=== PATIENT | male | born 1980 | race Caucasian/White ===

== ENCOUNTER → 2017-01-31 | Outpatient (CLI) | payer MEDICARE ==
[~2017-01-31] MED LIST: AMOXICILLIN500 MG PO; BACTRIM 400 MG-1 TAB PO; CLARITIN10 MG PO; DILANTIN50 MG PO; FLUTICASON0.05 MG/AC NAS; ONDANSETRON H2 MG/ML IV; Percocet 325 MG1 TAB PO; TOBREX OPHTH S2.5 ML OPH
[2017-01-31 10:17] LABS: BASO % 0.7 % (0.0-1.0); EOS # 0.1 10*3/uL (0.0-0.4); EOS % 1.7 % (1.0-4.0); HEMATOCRIT 46.6 % (42.0-52.0); LYMPH # 1.9 10*3/uL (1.3-4.4); LYMPH % 32.8 % (27.0-41.0); MEAN CELL VOLUME 90.8 fl (80.0-94.0); MEAN CORPUSCULAR HGB 31.2 pg (27.0-31.0); MEAN CORPUSCULAR HGB CONC 34.3 g/dl (33.0-37.0); MEAN PLATELET VOLUME 9.9 fl (9.6-12.3); MONO # 0.5 10*3/uL (0.1-1.0); MONO % 8.5 % (3.0-9.0); NEUT # 3.3 10*3/uL (2.3-7.9); PLATELET COUNT AUTOMATED 198 10*3/uL (130-400); RED BLOOD COUNT 5.13 10*6/uL (4.50-5.90); RED CELL DISTRI WIDTH 13.4 % (0-14.5); WHITE BLOOD COUNT 5.9 10*3/uL (4.8-10.8)
[2017-01-31 10:44] LABS: BUN 13 mg/dl (7-24); CHLORIDE 103 mmol/L (98-107); CREATININE 0.66 mg/dL (0.70-1.30); PHENYTOIN (DILANTIN) 18.1 ug/ml (10-20); POTASSIUM 3.7 mmol/L (3.5-5.1); SGOT/AST 19 IU/L (3-35); SGPT/ALT 30 U/L (12-78); SODIUM 141 mmol/L (136-145); TOTAL PROTEIN 8.2 gm/dL (6.4-8.2)
[2017-01-31 10:53] LABS: ALKALINE PHOSPHATASE 123 U/L (45-117)
== END | disposition home or self-care (01) ==
LOC: LAB 09:48
PROVIDERS: Internal Medicine
DX: G40.909 Epilepsy, unspecified, not intractable, without status epilepticus (principal); Z79.899 Other long term (current) drug therapy

== ENCOUNTER 2017-02-25 11:47 | Emergency (ER) | payer MEDICARE ==
[~2017-02-25] VITALS: Ht 180.3 cm; Wt 78.5 kg
[2017-02-25] MEDS ORDERED: ACULAR 0.5%3 ML OPH (12:20)
[2017-02-25] MEDS ORDERED: Tobrex Ophth S2.5 ML OPH (12:20)
== END 2017-02-25 13:18 | disposition home or self-care (01) ==
LOC: ED 11:47
DX: S05.02XA Injury of conjunctiva and corneal abrasion without foreign body, left eye, initial encounter (principal); Z79.899 Other long term (current) drug therapy; X58.XXXA Exposure to other specified factors, initial encounter; Y93.89 Activity, other specified; Y92.89 Other specified places as the place of occurrence of the external cause; Y99.8 Other external cause status

== ENCOUNTER 2018-06-18 09:47 | Emergency (ER) | payer MEDICARE ==
[~2018-06-18] VITALS: Wt 78.5 kg
--- NOTE | ~2018-06-18 | EKG ---
[place], [place] ELECTROCARDIOGRAM REPORT NAME: LINDA FREITAS UNIT #: [id number] ROOM: DOCTOR: EPIPHANY DRAFT REPORT BIRTHDATE: [birth year] [facility] Test Date: 2018-06-18 Test Time: 09:53:23 Pat Name: LINDA FREITAS Department: Room: Gender: [employer] Tech: Aubrie Devlin : 1980 Requested By: LANRE TIM Order Number: [id number] Reading MD: Roosevelt Ray MD Measurements Intervals [place] Rate: 99 P: 45 AR: 181 QRS: 33 QRSD: 98 T: 41 QT: 347 QTc: 446 Interpretive Statements Sinus rhythm Nonspecific ST T changes Electronically Signed On 06-20-2018 7:10:02 PST by Roosevelt Ray MD CM:EKGRPT:ELECTROCARDIOGRAM REPORT [id number] LANRE ERNANDEZ DRAFT REPORT LANRE TIM M.D.
[~2018-06-18 09:47] MED LIST changes: +ACULAR 0.5%3 ML OPH; +Tobrex Ophth S2.5 ML OPH
[2018-06-18 10:18] LABS: BASO % 0.5 % (0.0-1.0); HEMATOCRIT 47.5 % (42.0-52.0); HEMOGLOBIN 16.4 g/dl (14.0-18.0); LYMPH # 1.5 10*3/uL (1.3-4.4); LYMPH % 22.9 % (27.0-41.0); MEAN CORPUSCULAR HGB 31.1 pg (27.0-31.0); MEAN CORPUSCULAR HGB CONC 34.5 g/dl (33.0-37.0); MEAN PLATELET VOLUME 9.7 fl (9.6-12.3); MONO # 0.4 10*3/uL (0.1-1.0); MONO % 6.5 % (3.0-9.0); NEUT # 4.5 10*3/uL (2.3-7.9); NEUT % 69.9 % (47.0-73.0); PLATELET COUNT AUTOMATED 214 10*3/uL (130-400); RED BLOOD COUNT 5.28 10*6/uL (4.50-5.90); WHITE BLOOD COUNT 6.5 10*3/uL (4.8-10.8)
[2018-06-18 10:28] LABS: ACT PARTIAL THROMBO TIME 22.9 SECONDS (20.8-31.5)
[2018-06-18 10:41] LABS: ALKALINE PHOSPHATASE 119 U/L (45-117); BUN 6 mg/dl (7-24); CHLORIDE 104 mmol/L (98-107); CREATININE 0.74 mg/dL (0.70-1.30); POTASSIUM 3.8 mmol/L (3.5-5.1); SGOT/AST 14 IU/L (3-35); SGPT/ALT 31 U/L (12-78); SODIUM 139 mmol/L (136-145); TOTAL PROTEIN 8.4 gm/dL (6.4-8.2)
[2018-06-18] MEDS ORDERED: PHENYTOIN50 M1 PO (10:44)
[2018-06-18 10:46] LABS: TROPONIN I < 0.015 ng/ml (<0.045)
== END 2018-06-18 11:29 | disposition home or self-care (01) ==
LOC: ED 09:47
PROVIDERS: Emergency Medicine
DX: R00.2 Palpitations (principal); R00.0 Tachycardia, unspecified; Z79.899 Other long term (current) drug therapy

== ENCOUNTER 2019-03-27 14:02 | Emergency (ER) | payer MEDICARE ==
[~2019-03-27] VITALS: Ht 154.9 cm; Wt 79.4 kg
[~2019-03-27 14:02] MED LIST changes: +PHENYTOIN50 M1 PO
[2019-03-27] MEDS ORDERED: MYCOLOG CREAM 115 GM T (14:32)
== END 2019-03-27 14:40 | disposition home or self-care (01) ==
LOC: ED 14:02
DX: R21 Rash and other nonspecific skin eruption (principal)

== ENCOUNTER 2020-08-12 10:13 | Emergency (ER) | payer MEDICARE ==
[~2020-08-12] VITALS: Ht 180.3 cm; Wt 83.9 kg
[~2020-08-12 10:13] MED LIST changes: +MYCOLOG CREAM 115 GM T
[2020-08-12] MEDS ORDERED: Meclizine25 MG PO (12:19)
[2020-08-12] MEDS ORDERED: AMOXICILLIN500 M2 PO (12:19)
== END 2020-08-12 12:35 | disposition home or self-care (01) ==
LOC: ED 10:13
DX: J32.9 Chronic sinusitis, unspecified (principal); R42 Dizziness and giddiness; Z79.899 Other long term (current) drug therapy; Z98.890 Other specified postprocedural states

== ENCOUNTER → 2021-05-06 | Outpatient (CLI) | payer MEDICARE ==
[~2021-05-06] MED LIST changes: +AMOXICILLIN500 M2 PO; +Meclizine25 MG PO
== END | disposition home or self-care (01) ==
LOC: COVID19 15:25
PROVIDERS: ATTEND Family Medicine
DX: Z11.52 Encounter for screening for COVID-19 (principal)

== ENCOUNTER → 2023-07-13 | Outpatient (CLI) | payer MEDICARE, OTHER ==
[2023-07-13 12:34] LABS: HEMATOCRIT 48.2 % (42.0-52.0); MEAN CELL VOLUME 93.2 fl (80.0-94.0); MEAN CORPUSCULAR HGB 31.1 pg (27.0-31.0); MEAN CORPUSCULAR HGB CONC 33.4 g/dl (33.0-37.0); MEAN PLATELET VOLUME 10.1 fl (9.6-12.3); RED BLOOD COUNT 5.17 10*6/uL (4.50-5.90); RED CELL DISTRI WIDTH 13.2 % (0-14.5); WHITE BLOOD COUNT 6.4 10*3/uL (4.8-10.8)
[2023-07-13 13:01] LABS: ALKALINE PHOSPHATASE 101 U/L (46-116); CHLORIDE 103 mmol/L (98-107); CHOLESTEROL 198 mg/dL (<200); LDL CHOLESTEROL 113 mg/dL (9-159); PHENYTOIN (DILANTIN) 14.8 ug/ml (10-20); POTASSIUM 3.6 mmol/L (3.4-5.1); SGPT/ALT 21 U/L (5-49); TOTAL PROTEIN 7.6 gm/dL (6.0-8.0); TRIGLYCERIDES 115 mg/dl (<150)
[2023-07-13 13:11] LABS: BUN < 5 mg/dl (9-23)
== END | disposition home or self-care (01) ==
LOC: LAB 11:54
PROVIDERS: ATTEND Physician Assistant
DX: G30.1 Alzheimer's disease with late onset (principal); G40.909 Epilepsy, unspecified, not intractable, without status epilepticus; Z79.899 Other long term (current) drug therapy

== ENCOUNTER 2023-09-14 15:06 | Emergency (ER) | payer OTHER ==
[~2023-09-14] VITALS: Ht 180.3 cm; Wt 82.6 kg
[2023-09-14] MEDS ORDERED: FLUTICASONE-SAL12 GM INH (15:23)
[2023-09-14] MEDS ORDERED: PHENYTOIN50 M1 PO (15:24)
[2023-09-14] MEDS ORDERED: Tdap Vaccine 0.5 ML SYR (Adult Vaccine) IM ONE (16:50)
[2023-09-14] MEDS ORDERED: ACETAMINOPHEN 325 MG TAB PO ONE (16:50)
[2023-09-14] MEDS ORDERED: Bacitracin Zinc 14 GM TUBE T ONE (18:20)
== END 2023-09-14 18:34 | disposition home or self-care (01) ==
LOC: ED 15:06
DX: S20.211A Contusion of right front wall of thorax, initial encounter (principal); S50.312A Abrasion of left elbow, initial encounter; S09.8XXA Other specified injuries of head, initial encounter; Z98.890 Other specified postprocedural states; Z90.89 Acquired absence of other organs; W07.XXXA Fall from chair, initial encounter; Y93.89 Activity, other specified; Y92.009 Unspecified place in unspecified non-institutional (private) residence as the place of occurrence of the external cause; Y99.8 Other external cause status

== ENCOUNTER 2024-08-19 12:05 | Emergency (ER) | payer OTHER ==
[~2024-08-19] VITALS: Ht 180.3 cm; Wt 84.4 kg
[~2024-08-19 12:05] MED LIST changes: +FLUTICASONE-SAL12 GM INH; +MUCUS RELIEF600 MG PO; +OMNICEF300 MG PO; +VITAMIN D350 MCG PO; +ZITHROMAX250 MG PO
[2024-08-19] MEDS ORDERED: Bacitracin Zinc 14 GM TUBE T ONE (12:30)
[2024-08-19] MEDS ORDERED: Doxycycline Hyclate 100 MG CAPSULE PO ONE (12:30)
== END 2024-08-19 12:39 | disposition home or self-care (01) ==
LOC: ED 12:05
DX: S80.862A Insect bite (nonvenomous), left lower leg, initial encounter (principal); G40.909 Epilepsy, unspecified, not intractable, without status epilepticus; Z79.899 Other long term (current) drug therapy; Z98.890 Other specified postprocedural states; W57.XXXA Bitten or stung by nonvenomous insect and other nonvenomous arthropods, initial encounter; Y93.89 Activity, other specified; Y92.89 Other specified places as the place of occurrence of the external cause; Y99.8 Other external cause status